=== PATIENT | female | born 1945 | race Caucasian/White ===

== ENCOUNTER → 2018-01-08 | Outpatient (CLI) | payer MEDICARE, BC | END | disposition home or self-care (01) | LOC: CFH 14:01 | PROVIDERS: ATTEND Family Medicine | DX: Z13.820 Encounter for screening for osteoporosis (principal); Z12.31 Encounter for screening mammogram for malignant neoplasm of breast; M85.88 Other specified disorders of bone density and structure, other site; N95.9 Unspecified menopausal and perimenopausal disorder | CPT/HCPCS: 77080; 77067 ==

== ENCOUNTER 2019-05-11 12:13 | Inpatient (IN) | payer MEDICARE, BC ==
[2019-05-11] VITALS (10 sets, daily range): BP systolic 118–151; BP diastolic 53–69
[~2019-05-11] VITALS: Ht 180.3 cm; Wt 101.3 kg
[2019-05-11] MEDS ORDERED: RANITIDINE (12:26)
[2019-05-11] MEDS ORDERED: SODIUM CHLORIDE 0.9% 1,000 ML IV ONE (12:28)
[2019-05-11] MEDS ORDERED: PANTOPRAZOLE 80 MG in SODIUM CHLORIDE 0.9% 50 ML IVPB ONE (12:28)
[2019-05-11] MEDS ORDERED: PANTOPRAZOLE 80 MG in SODIUM CHLORIDE 0.9% 100 ML IV SCH ×2 (12:28→15:00)
[2019-05-11] MEDS ORDERED: SODIUM CHLORIDE FLUSH 10ML SYR IVF ONE (12:30)
[2019-05-11 12:52] LABS: MEAN CORPUSCULAR HGB CONC 32.3 g/dL (32.4-35.8); MEAN CORPUSCULAR VOLUME 89.6 fL (80-100); MEAN PLATELET VOLUME 9.3 fL (7.4-10.4); PLATELET COUNT 207 x10^3/uL (130-400); RED BLOOD COUNT 2.61 x10^6/uL (3.82-5.3)
[2019-05-11] MEDS ORDERED: PLEASE ENTER ALLERGIES MC SCH (13:00)
[2019-05-11 13:03] LABS: ALANINE AMINOTRANSFERASE 17 U/L (12-78); ALBUMIN 3.2 g/dL (3.4-5.0); ANION GAP 6 mmol/L (5-15); CALCIUM 8.1 mg/dL (8.5-10.1); CHLORIDE 117 mmol/L (98-107); CREATININE 0.61 mg/dL (0.55-1.02)
[2019-05-11 13:05] LABS: BASOPHILS # (AUTO) 0.01 x10^3/uL (0-0.1); BASOPHILS % (AUTO) 0 % (0-1); EOSINOPHILS # (AUTO) 0.02 x10^3/uL (0-0.4); EOSINOPHILS % (AUTO) 0 % (1-7); INTERNATIONAL NORMALIZED RATIO 1.09 (0.93-1.1); LYMPHOCYTES # (AUTO) 0.67 x10^3/uL (1-3.4); LYMPHOCYTES % (AUTO) 5 % (22-44); MD SCAN; MONOCYTES # (AUTO) 0.61 x10^3/uL (0.2-0.8); MONOCYTES % (AUTO) 5 % (2-9); NEUTROPHILS # (AUTO) 11.93 x10^3/uL (1.8-6.8); NEUTROPHILS % (AUTO) 90 % (42-75); PROTHROMBIN TIME 11.4 Seconds (9.6-11.5)
[2019-05-11 13:09] LABS: ALKALINE PHOSPHATASE 60 U/L (45-117); BILIRUBIN,TOTAL 0.2 mg/dL (0.2-1.0); TOTAL PROTEIN 6.3 g/dL (6.4-8.2)
--- NOTE | 2019-05-11 13:16 | NUR ---
LATE ENTRY DUE TO PT CARE: PT BIB EMS FOR "FLU LIKE SYMTPOMS." PT STATED SHE STARTED TO FEEL "UNWELL" LAST NOC AROUND 1800. PT STATES DIZZINESS WITH MOBILITY AND VOMITTING COFFEE-GROUND EMESIS. FS ON SCENE 145, 20G PIV IN LEFT WRIST ESTABLISHED EN ROUTE AND 150CC NS GIVEN. PT AAO X 4, NAD, ROOM AIR. DRESSED IN GOWN AND ATTACHED TO ALL MONITORS. SECOND PIV ESTABLISHED BY THIS RN AND LABS DRAWN. DAUGHTER AT BEDSIDE.
[2019-05-11] MEDS ORDERED: ONDANSETRON 2MG/ML, 2ML ONE ×2 (13:19→15:30)
[2019-05-11] MEDS ORDERED: ONDANSETRON 2MG/ML, 2ML IVPush ONE (13:30)
--- NOTE | 2019-05-11 13:30 | NUR ---
PT MEDICATED PER ORDER.
--- NOTE | 2019-05-11 13:47 | NUR ---
BLOOD CONSENT SIGNED AND PLACED IN CHART AND BLOOD ORDERED.
--- NOTE | 2019-05-11 14:00 | NUR ---
FIRST UNIT PRBCS STARTED, 2 RN VERIFICATION COMPLETED AND VSS TO START TRANSFUSION.
--- NOTE | 2019-05-11 14:13 | NUR ---
PT TOLERATED FIRST 15 MINUTES OF BLOOD TRANSFUSION WITH S/S OF REACTION, VSS, PT ASLEEP AND COMFORTABLE, FAMILY AT BEDSIDE.
--- NOTE | 2019-05-11 14:54 | NUR ---
[facility] AT BEDSIDE.
[2019-05-11] MEDS ORDERED: ONDANSETRON 2MG/ML, 2ML IVPush PRN (15:00)
[2019-05-11] MEDS ORDERED: ACETAMINOPHEN 325 MG TABLET PO PRN (15:00)
--- NOTE | 2019-05-11 15:35 | NUR ---
PT C/O NAUSEA, MEDICATED PER ORDER.
[2019-05-11 15:37] LABS: FREE T4 (FREE THYROXINE) 1.18 ng/dL (0.76-1.46)
--- NOTE | 2019-05-11 15:40 | NUR ---
Patient/Caregiver given discharge instructions and they have confirmed that they understand the instructions. Patient ambulatory with steady gait. Addendum: 05/11/19 at 1541 by VIANEY REPORT GIVEN TO ISRAEL FISHER. PT TO TRANSFER TO INPATIENT STATUS.
[2019-05-11 16:09] LABS: HEMOGLOBIN A1C 4.9 % (4.2-6.3)
[2019-05-11] MEDS: D5%-0.45% NACL 1,000 ML IV SCH (21:29)
[2019-05-12] VITALS (7 sets, daily range): BP systolic 104–135; BP diastolic 56–68
[2019-05-12 04:41] LABS: ANION GAP 4 mmol/L (5-15); CALCIUM 7.3 mg/dL (8.5-10.1); CHLORIDE 113 mmol/L (98-107); CREATININE 0.52 mg/dL (0.55-1.02)
[2019-05-12] MEDS: D5%-0.45% NACL 1,000 ML IV SCH ×2 (05:33→14:57)
[2019-05-12] MEDS ORDERED: FENTANYL PF 100 MCG/2ML ONE (07:43)
[2019-05-12] MEDS ORDERED: MIDAZOLAM 1 MG/ML, 5ML ONE (07:43)
[2019-05-12] MEDS: OMEPRAZOLE 20 MG CAPSULE.DR PO SCH ×2 (08:30→09:12)
[2019-05-12] MEDS: SUCRALFATE 1 GM/10 ML UDC PO SCH ×5 (08:30→20:26)
[2019-05-12] MEDS ORDERED: EPINEPHRINE SYRINGE 0.1 MG/ML, 10ML ONE (08:54)
[2019-05-12 16:41] LABS: MEAN CORPUSCULAR HEMOGLOBIN 30.1 pg (27.0-34.8); MEAN CORPUSCULAR HGB CONC 33.1 g/dL (32.4-35.8); MEAN PLATELET VOLUME 8.8 fL (7.4-10.4); PLATELET COUNT 152 x10^3/uL (130-400); RED BLOOD COUNT 2.31 x10^6/uL (3.82-5.3); RED CELL DISTRIBUTION WIDTH 15.6 % (9.6-15.2)
[2019-05-12 16:59] LABS: BASOPHILS # (AUTO) 0.01 x10^3/uL (0-0.1); BASOPHILS % (AUTO) 0 % (0-1); EOSINOPHILS # (AUTO) 0.02 x10^3/uL (0-0.4); EOSINOPHILS % (AUTO) 0 % (1-7); LYMPHOCYTES # (AUTO) 0.57 x10^3/uL (1-3.4); LYMPHOCYTES % (AUTO) 13 % (22-44); MD SCAN; MONOCYTES # (AUTO) 0.35 x10^3/uL (0.2-0.8); MONOCYTES % (AUTO) 8 % (2-9); NEUTROPHILS # (AUTO) 3.58 x10^3/uL (1.8-6.8); NEUTROPHILS % (AUTO) 79 % (42-75)
[2019-05-13] MEDS: D5%-0.45% NACL 1,000 ML IV SCH ×2 (00:30→17:05)
[2019-05-13 01:42] VITALS: BP 96/55
[2019-05-13] MEDS: OMEPRAZOLE 20 MG CAPSULE.DR PO SCH (05:52)
[2019-05-13 06:39] LABS: MEAN CORPUSCULAR HEMOGLOBIN 30.2 pg (27.0-34.8); MEAN CORPUSCULAR HGB CONC 33.5 g/dL (32.4-35.8); MEAN CORPUSCULAR VOLUME 90.4 fL (80-100); MEAN PLATELET VOLUME 8.7 fL (7.4-10.4); PLATELET COUNT 144 x10^3/uL (130-400); RED BLOOD COUNT 2.53 x10^6/uL (3.82-5.3); RED CELL DISTRIBUTION WIDTH 15.8 % (9.6-15.2)
[2019-05-13 07:24] LABS: BASOPHILS # (AUTO) 0.01 x10^3/uL (0-0.1); BASOPHILS % (AUTO) 0 % (0-1); EOSINOPHILS # (AUTO) 0.02 x10^3/uL (0-0.4); EOSINOPHILS % (AUTO) 1 % (1-7); LYMPHOCYTES # (AUTO) 0.92 x10^3/uL (1-3.4); LYMPHOCYTES % (AUTO) 18 % (22-44); MD SCAN; MONOCYTES # (AUTO) 0.64 x10^3/uL (0.2-0.8); MONOCYTES % (AUTO) 13 % (2-9); NEUTROPHILS # (AUTO) 3.38 x10^3/uL (1.8-6.8); NEUTROPHILS % (AUTO) 68 % (42-75)
[2019-05-13 07:36] VITALS: BP 122/65
[2019-05-13] MEDS: SUCRALFATE 1 GM/10 ML UDC PO SCH ×4 (07:56→22:11)
[2019-05-13] MEDS: FLUTICASONE NASAL SPRAY 16GM NAS SCH ×2 (10:00→21:00)
[2019-05-13] MEDS: LORATADINE 10 MG TABLET PO SCH (12:03)
[2019-05-13 12:20] VITALS: BP 123/69
[2019-05-13 19:42] VITALS: BP 125/67
[2019-05-13 20:37] LABS: CULTURE INDICATED? YES; MICROSCOPIC INDICATED
[2019-05-13] MEDS ORDERED: CEFTRIAXONE PMX 1GM/50ML 50 ML IV SCH (22:00)
[2019-05-13] MEDS: SODIUM CHLORIDE NASAL SPRAY 45ML BOTTLE NAS PRN (22:28)
[2019-05-14 01:31] VITALS: BP 123/69
[2019-05-14 04:59] LABS: BASOPHILS # (AUTO) 0.02 x10^3/uL (0-0.1); BASOPHILS % (AUTO) 0 % (0-1); EOSINOPHILS # (AUTO) 0.15 x10^3/uL (0-0.4); EOSINOPHILS % (AUTO) 3 % (1-7); LYMPHOCYTES # (AUTO) 0.98 x10^3/uL (1-3.4); LYMPHOCYTES % (AUTO) 17 % (22-44); MD NO; MEAN CORPUSCULAR HEMOGLOBIN 30.2 pg (27.0-34.8); MEAN CORPUSCULAR HGB CONC 33.6 g/dL (32.4-35.8); MEAN PLATELET VOLUME 8.4 fL (7.4-10.4); MONOCYTES # (AUTO) 0.56 x10^3/uL (0.2-0.8); MONOCYTES % (AUTO) 10 % (2-9); NEUTROPHILS # (AUTO) 4.15 x10^3/uL (1.8-6.8); NEUTROPHILS % (AUTO) 71 % (42-75); PLATELET COUNT 158 x10^3/uL (130-400); RED BLOOD COUNT 2.56 x10^6/uL (3.82-5.3); RED CELL DISTRIBUTION WIDTH 15.6 % (9.6-15.2)
[2019-05-14 05:14] LABS: ANION GAP 6 mmol/L (5-15); CALCIUM 7.6 mg/dL (8.5-10.1); CHLORIDE 107 mmol/L (98-107)
[2019-05-14 05:15] LABS: CREATININE 0.42 mg/dL (0.55-1.02)
[2019-05-14] MEDS: OMEPRAZOLE 20 MG CAPSULE.DR PO SCH (05:40)
[2019-05-14] MEDS: SUCRALFATE 1 GM/10 ML UDC PO SCH ×4 (07:00→16:00)
[2019-05-14] MEDS ORDERED: POTASSIUM CHLORIDE 20 MEQ TAB.ER.PRT PO ONE (07:00)
[2019-05-14 07:43] VITALS: BP 133/72
[2019-05-14] MEDS: FLUTICASONE NASAL SPRAY 16GM NAS SCH (09:00)
[2019-05-14] MEDS: D5%-0.45% NACL 1,000 ML IV SCH (11:52)
[2019-05-14] MEDS: LORATADINE 10 MG TABLET PO SCH (11:52)
[2019-05-14] MEDS: SODIUM CHLORIDE NASAL SPRAY 45ML BOTTLE NAS PRN (11:53)
[2019-05-14] MEDS ORDERED: POTASSIUM CHLORIDE 20 MEQ TAB.ER.PRT ONE (12:00)
[2019-05-14 12:15] VITALS: BP 123/70
[2019-05-14] MEDS ORDERED: OMEP-110 PO (14:00)
[2019-05-14] MEDS ORDERED: CIPR-184 PO (14:00)
[2019-05-14] MEDS ORDERED: SUCR1ORA5 PO (14:00)
== END 2019-05-14 17:58 | disposition home or self-care (01) | DRG 368 ==
LOC: ED 12:54 → EDIP 14:49 → 4EST 16:06
PROVIDERS: ADMIT Hospitalist; ATTEND Hospitalist
PROC: 30233N1 Transfusion of Nonautologous Red Blood Cells into Peripheral Vein, Percutaneous Approach (ICD-10-PCS; 2019-05-11)
PROC: 0DB68ZX Excision of Stomach, Via Natural or Artificial Opening Endoscopic, Diagnostic (ICD-10-PCS; 2019-05-12)
PROC: 0W3P8ZZ Control Bleeding in Gastrointestinal Tract, Via Natural or Artificial Opening Endoscopic (ICD-10-PCS; principal; 2019-05-12 08:00)
DX: K22.6 Gastro-esophageal laceration-hemorrhage syndrome (principal); J96.91 Respiratory failure, unspecified with hypoxia; D62 Acute posthemorrhagic anemia; E87.0 Hyperosmolality and hypernatremia; N39.0 Urinary tract infection, site not specified; J98.11 Atelectasis; K29.71 Gastritis, unspecified, with bleeding; K21.0 Gastro-esophageal reflux disease with esophagitis; G62.9 Polyneuropathy, unspecified; Z96.653 Presence of artificial knee joint, bilateral; M19.90 Unspecified osteoarthritis, unspecified site; Z68.29 Body mass index [BMI] 29.0-29.9, adult; Z78.0 Asymptomatic menopausal state; Z79.82 Long term (current) use of aspirin; Z79.899 Other long term (current) drug therapy; Z88.0 Allergy status to penicillin; R73.02 Impaired glucose tolerance (oral); R73.9 Hyperglycemia, unspecified
CPT/HCPCS: 36415; 71045; 80048; 80053; 81001; 82607; 83036; 83690; 83735; 84100; 84439; 84443; 85014; 85018; 85025; 85610; 86850; 86900; 86923; 87077; 87086; 87186; 88305; 93005; 96365; 96375; G0378; J0696; J2250; J2405; J3010; A4648; C9113; J7030; P9016

== ENCOUNTER → 2020-05-01 | Outpatient (CLI) | payer MEDICARE, BC ==
[~2020-05-01] MED LIST: CIPR-184 PO; OMEP-110 PO; RANITIDINE; SUCR1ORA5 PO
== END | disposition home or self-care (01) ==
LOC: CFH 10:15
PROVIDERS: ATTEND Family Medicine
DX: Z12.31 Encounter for screening mammogram for malignant neoplasm of breast (principal); M85.88 Other specified disorders of bone density and structure, other site; N95.9 Unspecified menopausal and perimenopausal disorder
CPT/HCPCS: 77063; 77067; 77080

== ENCOUNTER 2020-07-10 11:01 | Emergency (ER) | payer MEDICARE, BC ==
[~2020-07-10] VITALS: Ht 177.8 cm; Wt 105.2 kg
--- NOTE | 2020-07-10 11:40 | NUR ---
PT C/O FEELING LIKE HEART FLUTTERING IN AM. DENIES C/P, SOB. PT CONNECTED TO MONITORING. CALL LIGHT IN REACH. DAUGHTER AT BEDSIDE.
--- NOTE | 2020-07-10 11:58 | NUR ---
EKG DONE IN TRIAGE.
[2020-07-10 11:59] LABS: BASOPHILS % (AUTO) 1 % (0-1); EOSINOPHILS % (AUTO) 2 % (1-7); LYMPHOCYTES % (AUTO) 20 % (22-44); MEAN CORPUSCULAR HEMOGLOBIN 28.8 pg (27.0-34.8); MEAN CORPUSCULAR HGB CONC 32.9 g/dL (32.4-35.8); MEAN PLATELET VOLUME 9.1 fL (7.4-10.4); MONOCYTES % (AUTO) 9 % (2-9); NEUTROPHILS % (AUTO) 68 % (42-75); PLATELET COUNT 197 x10^3/uL (130-400); RED BLOOD COUNT 4.58 x10^6/uL (3.82-5.3)
[2020-07-10 12:04] LABS: MD NO
[2020-07-10 12:11] LABS: ALANINE AMINOTRANSFERASE 23 U/L (12-78); ALBUMIN 3.6 g/dL (3.4-5.0); ANION GAP 5 mmol/L (5-15); CALCIUM 8.8 mg/dL (8.5-10.1); CHLORIDE 112 mmol/L (98-107); CREATININE 0.62 mg/dL (0.55-1.02)
[2020-07-10 12:21] LABS: ALKALINE PHOSPHATASE 78 U/L (45-117); BILIRUBIN,TOTAL 0.3 mg/dL (0.2-1.0); TOTAL PROTEIN 7.5 g/dL (6.4-8.2); TROPONIN I < 0.015 ng/mL (0.000-0.045)
--- NOTE | 2020-07-10 12:30 | NUR ---
ALL RESULTS ARE BACK AT THIS TIME. CHART UP FOR RECHECK.
[2020-07-10 12:37] VITALS: BP 139/59
--- NOTE | 2020-07-10 12:59 | NUR ---
MD AT BEDSIDE TO UPDATE PT ON POC.
== END 2020-07-10 13:34 | disposition home or self-care (01) ==
LOC: ED 12:18
DX: R00.2 Palpitations (principal); R42 Dizziness and giddiness; I45.10 Unspecified right bundle-branch block; R07.89 Other chest pain
CPT/HCPCS: 36415; 71045; 80053; 84443; 84484; 85025; 93005; 99285

== ENCOUNTER 2020-07-24 06:49 | Outpatient (CLI) | payer MEDICARE, BC | END 2020-07-24 23:59 | disposition home or self-care (01) | LOC: CVU 06:49 | PROVIDERS: ATTEND Internal Medicine Cardiovascular Disease | DX: I08.0 Rheumatic disorders of both mitral and aortic valves (principal); R03.0 Elevated blood-pressure reading, without diagnosis of hypertension | CPT/HCPCS: 93306 ==